=== PATIENT | female | born 1995 | race Caucasian/White ===

== ENCOUNTER 2016-09-08 12:21 | Emergency (ER) | payer SELFPAY ==
[2016-09-08 12:50] VITALS: BP 117/68
--- NOTE | 2016-09-08 13:15 | EDM.PDOC ---
ED HPI GI/ABDOMINAL - General Chief Complaint: Chest Pain Stated Complaint: CONSTIPATION Time Seen by Provider: 09/08/16 12:47 Source of Information: Reports: Patient History Limitations: Reports: No limitations - History of Present Illness INITIAL COMMENTS - FREE TEXT/NARRATIVE: Patient presents for evaluation and treatment of abdominal pain and constipation. Patient reports that she's been struggling with constipation since she was a young girl. She reports that her last bowel movement was about a week and a half ago. She reports abdominal pain and bloating. She reports that the pain is worse on the right side and radiates to her back. She did try multiple medications over the counter maker currently. She reports that she's tried milk of magnesia, Maalox, stool softeners, magnesium citrate and enemas. She reports most recently she has had 2 bottles of magnesium citrate and then using milk of magnesia daily. She reports associated symptoms of a loss of appetite and nausea.. She reports on occasion she will have some bloody stools. She denies any fevers, chills or vomiting. Patient denies any surgeries to her abdomen. She said she's never been evaluated for her constipation. - Related Data Allergies/ADRs: Allergies Allergy/AdvReac Type Severity Reaction Status Date / Time topiramate [From Topamax] Allergy Tachycardia Verified 04/06/16 19:24 Home Meds: Home Meds Acetaminophen [Tylenol] 325 mg PO TID PRN 04/06/16 [History] Past Medical History Gastrointestinal History: Reports: Chronic constipation Musculoskeletal History: Reports: Fracture Neurological History: Reports: Seizure Psychiatric History: Reports: Anxiety, Depression, Schizophrenia - Past Surgical History HEENT Surgical History: Reports: Tonsillectomy Social & Family History - Tobacco Use Smoking Status *Q: Never Smoker - Recreational Drug Use Recreational Drug Use: No ED ROS GENERAL - Review of Systems Review Of Systems: See Below Constitutional: Reports: decreased appetite. Denies: fever, chills GI/Abdominal: Reports: Abdominal pain, Constipation, Hematochezia (occassional) , Nausea. Denies: Vomiting : Reports: no symptoms. Denies: flank pain, hematuria ED EXAM, GI/ABD - Physical Exam Exam: See Below Exam Limited By: No limitations General Appearance: alert, WD/WN, no apparent distress Respiratory/Chest: no respiratory distress, lungs clear, normal breath sounds Cardiovascular: normal peripheral pulses, regular rate, rhythm, no murmur GI/Abdominal: normal bowel sounds, soft, tenderness (RLQ, LLQ), distention Neurological: alert, oriented, normal cognition Psychiatric: normal affect, normal mood Skin Exam: Warm, Dry, Normal color Course - Vital Signs Last Recorded V/S: Last Vital Signs Temp 36.6 C 09/08/16 12:47 Pulse 82 09/08/16 12:47 Resp 20 09/08/16 12:47 BP 117/68 09/08/16 12:47 Pulse Ox 100 09/08/16 12:47 - Orders/Labs/Meds Labs: Laboratory Tests 09/08/16 09/08/16 09/08/16 Range/Units 13:19 13:19 13:19 WBC 6.69 (3.98-10.04) K/mm3 RBC 4.19 (3.98-5.22) M/mm3 Hgb 12.8 (11.2-15.7) gm/L Hct 38.6 (34.1-44.9) % MCV 92.1 (79.4-94.8) fl MCH 30.5 (25.6-32.2) pg MCHC 33.2 (32.2-35.5) g/dl RDW Std Deviation 39.6 (36.4-46.3) fL Plt Count 236 (182-369) K/mm3 MPV 10.4 (9.4-12.3) fl Neutrophils % (Manual) 51 (40-60) % Band Neutrophils % 0 (0-10) % Lymphocytes % (Manual) 43 H (20-40) % Atypical Lymphs % 0 % Monocytes % (Manual) 5 (2-10) % Eosinophils % (Manual) 1 (0.7-5.8) % Basophils % (Manual) 0 L (0.1-1.2) Platelet Estimate Adequate RBC Morph Comment Normal Sodium 141 (136-145) mEq/L Potassium 3.6 (3.5-5.1) mEq/L Chloride 104 (98-107) mEq/L Carbon Dioxide 27 (21-32) mEq/L Anion Gap 13.6 (5-15) BUN 14 (7-18) mg/dL Creatinine 0.6 (0.55-1.02) mg/dL Est Cr Clr Drug Dosing 128.08 mL/min Estimated GFR (MDRD) > 60 (>60) mL/min BUN/Creatinine Ratio 23.3 H (14-18) Glucose 94 (74-106) mg/dL Calcium 8.6 (8.5-10.1) mg/dL C-Reactive Protein < 0.2 (<1.0) mg/dL HCG, Qual Negative (NEGATIVE) Urine Color (Yellow) Urine Appearance (Clear) Urine pH (5.0-8.0) Ur Specific [place] (1.005-1.030) Urine Protein (Negative) Urine Glucose (UA) (Negative) Urine Ketones (Negative) Urine Occult Blood (Negative) Urine Nitrite (Negative) Urine Bilirubin (Negative) Urine Urobilinogen (0.2-1.0) Ur Leukocyte Esterase (Negative) Urine RBC (0-5) /hpf Urine WBC (0-5) /hpf Ur Squamous Epith Cells (0-5) /hpf Urine Bacteria (FEW) /hpf Urine Mucus (FEW) /hpf 09/08/16 Range/Units 15:00 WBC (3.98-10.04) K/mm3 RBC (3.98-5.22) M/mm3 Hgb (11.2-15.7) gm/L Hct (34.1-44.9) % MCV (79.4-94.8) fl MCH (25.6-32.2) pg MCHC (32.2-35.5) g/dl RDW Std Deviation (36.4-46.3) fL Plt Count (182-369) K/mm3 MPV (9.4-12.3) fl Neutrophils % (Manual) (40-60) % Band Neutrophils % (0-10) % Lymphocytes % (Manual) (20-40) % Atypical Lymphs % % Monocytes % (Manual) (2-10) % Eosinophils % (Manual) (0.7-5.8) % Basophils % (Manual) (0.1-1.2) Platelet Estimate RBC Morph Comment Sodium (136-145) mEq/L Potassium (3.5-5.1) mEq/L Chloride (98-107) mEq/L Carbon Dioxide (21-32) mEq/L Anion Gap (5-15) BUN (7-18) mg/dL Creatinine (0.55-1.02) mg/dL Est Cr Clr Drug Dosing mL/min Estimated GFR (MDRD) (>60) mL/min BUN/Creatinine Ratio (14-18) Glucose (74-106) mg/dL Calcium (8.5-10.1) mg/dL C-Reactive Protein (<1.0) mg/dL HCG, Qual (NEGATIVE) Urine Color Light yellow (Yellow) Urine Appearance Clear (Clear) Urine pH 7.5 (5.0-8.0) Ur Specific [place] 1.020 (1.005-1.030) Urine Protein Negative (Negative) Urine Glucose (UA) Negative (Negative) Urine Ketones Negative (Negative) Urine Occult Blood Negative (Negative) Urine Nitrite Negative (Negative) Urine Bilirubin Negative (Negative) Urine Urobilinogen 0.2 (0.2-1.0) Ur Leukocyte Esterase Negative (Negative) Urine RBC 0-5 (0-5) /hpf Urine WBC 0-5 (0-5) /hpf Ur Squamous Epith Cells 5-10 H (0-5) /hpf Urine Bacteria Occasional (FEW) /hpf Urine Mucus Not seen (FEW) /hpf Meds: Medications Discontinued Medications Generic Name Dose Route Start Last Admin Trade Name Freq PRN Reason Stop Dose Admin Ketorolac Tromethamine 60 mg 09/08/16 15:03 09/08/16 15:28 Toradol IM 09/08/16 15:04 60 mg ONETIME ONE Administration - Radiology Interpretation Free Text/Narrative:: Flat plate of the abdomen shows stool in the ascending colon and rectum. - Re-Assessments/Exams Free Text/Narrative Re-Assessment/Exam: 09/08/16 14:53 Labs returned. White blood cell count is normal at 6.9, hemoglobin is 2.8 and platelets are 236. Sodium is 141, potassium 3.6 record is 104. Anion gap is 13.6. CRP is normal at less than 0.2. HCG is negative. I reviewed the lab and x-ray results with the patient. Awaiting UA. Plan will be to have her do suppositories, Miralax and a bottle of mag citrate. She is to follow up with family medicine this week for further evaluation. 09/08/16 15:53 UA returned. No leuks, ketones, nitrites or glucose. Will discharge home . Discharge instructions as documented. Departure - Departure Time of Disposition: 15:53 Disposition: Home, Self-Care 01 Condition: fair Clinical Impression: Constipation Instructions: Constipation, Adult Referrals: PCP,None [Primary Care Provider] - Yennifer Barrow PA-C [Physician [employer]] - Forms: ED Department Discharge Additional Instructions: I recommend a bottle of mag citrate and a rectal suppository today. start MiraLax daily. Make sure your are drinking plenty of fluids. Take about 70-80 ounces of fluid a day. Take OTC tylenol or motrin as needed for pain. Follow-up with family medicine this week. I recommend Latia Bravo or Yeninfer Barrow. All [phone] schedules one of them. His return to the ER should her symptoms change or worsen.
[2016-09-08] MEDS ORDERED: Ketorolac 60 MG/2 ML SDV IM ONE (15:03)
--- NOTE | 2016-09-09 08:02 | CR ---
Abdomen: Supine view of the abdomen was obtained. Comparison: No previous abdominal x-ray. Scattered gas within small bowel and colon is seen which appears unremarkable. No abnormal calcifications or soft tissue abnormality is seen. Bony structures are unremarkable. Impression: 1. No abnormality is identified on supine abdominal x-ray. Diagnostic code #1
== END 2016-09-08 16:12 | disposition home or self-care (01) ==
LOC: JD.ED 12:21
DX: K59.00 Constipation, unspecified (principal); F41.9 Anxiety disorder, unspecified; F32.9 Major depressive disorder, single episode, unspecified; Z98.890 Other specified postprocedural states
CPT/HCPCS: 36415; 74000; 80048; 81001; 84703; 85025; 86140; 96372; 99284; J1885; 99283

== ENCOUNTER 2016-10-02 07:53 | Day surgery (SDC) | payer SELFPAY ==
[~2016-10-02 07:53] MED LIST: Lactated Ringers 1,000 ML IV SCH; Lidocaine 1% 4 ML ONE; Lidocaine 1%/Sod Bicarbonate in NS 8.4% 1 ML Syringe IV PRN; Midazolam 1 MG/ML 2 ML SDV ONE; Propofol 200 MG/20 ML SDV ONE; Sodium Chloride 0.9% 10 ML Syringe FLUSH PRN; fentaNYL 100 MCG/2 ML SDV ONE
--- NOTE | 2016-10-02 09:26 | PCM.OPNOTE ---
[id number] with random rectal biopsy times 2 using cold forceps Findings: normal exam Pre Op Diagnosis: change in bowel habits Post-Op Diagnosis: same Anesthesia Technique: MAC, Moderate sedation Primary Surgeon: Neno Mitchell Pathology: rectal biopsy EBL in mLs: 0 Complications: None Condition: Good Free Text/Narrative:: After adequate IV sedation and analgesia was obtained the patient was placed on her left side. Perianal inspection and digital rectal examination were performed and were unremarkable. A lubricated colonoscope was inserted into the rectum and advanced to the cecum without difficulty. The bowel preparation was adequate. The cecum, right colon, transverse, and descending colons were endoscopically normal with no mass lesions or inflammatory changes seen. The sigmoid was unremarkable as well.The rectum in both views was unremarkable. Given this patient's history I took 2 random biopsies of the rectum with cold forceps for histologic review. Desktop Support Associate photographs were taken for the patient and for the record. Air was removed as I finished the procedure, which she tolerated well.
--- NOTE | 2016-10-02 09:27 | PCM48HPAN ---
Post Anesthesia Note - EVALUATION WITHIN 48HRS OF ANESTHETIC Vital Signs in Normal Range: Yes Patient Participated in Evaluation: Yes Respiratory Function Stable: Yes Airway Patent: Yes Cardiovascular Function Stable: Yes Hydration Status Stable: Yes Pain Control Satisfactory: Yes Nausea and Vomiting Control Satisfactory: Yes Mental Status Recovered: Yes
[2016-10-02] MEDS ORDERED: Propofol 200 MG/20 ML SDV ONE (09:31)
[2016-10-02 09:48] VITALS: BP 100/54
== END 2016-10-02 09:50 | disposition home or self-care (01) ==
LOC: JD.SDS 07:53
PROVIDERS: ATTEND Surgery
DX: K62.5 Hemorrhage of anus and rectum (principal); K59.00 Constipation, unspecified; F31.9 Bipolar disorder, unspecified; F41.9 Anxiety disorder, unspecified; G43.909 Migraine, unspecified, not intractable, without status migrainosus; G40.909 Epilepsy, unspecified, not intractable, without status epilepticus; Z79.899 Other long term (current) drug therapy; Z98.890 Other specified postprocedural states; Z88.8 Allergy status to other drugs, medicaments and biological substances
CPT/HCPCS: 45380; 81025; 88305; J2250; J3010; J7120; J2704